=== PATIENT | male | born 1985 | race Caucasian/White ===

== ENCOUNTER 2018-10-09 17:27 | Emergency (ER) | payer BC, OTHER ==
[~2018-10-09] VITALS: Ht 185.4 cm; Wt 113.4 kg
[~2018-10-09 17:27] MED LIST: NAPR-915 PO; SULF1TAB35 PO; TRAM-42 PO; TRAM50TA2 PO
[2018-10-09 18:08] LABS: BACTERIA,URINE FEW /HPF; BILIRUBIN,URINE NEGATIVE (NEGATIVE); CLARITY,URINE CLOUDY; COLOR,URINE YELLOW; GLUCOSE, URINE (UA) NEGATIVE (NEGATIVE); KETONES,URINE NEGATIVE (NEGATIVE); LEUKOCYTE ESTERASE ,URINE 3+ (NEGATIVE); NITRITE,URINE NEGATIVE (NEGATIVE); PH,URINE 6.5 (5-9); PROTEIN,URINE NEGATIVE (NEGATIVE); RBC,URINE 0-2 /HPF; SQUAMOUS EPITHELIAL CELL,UR 0-2 /HPF; WBC,URINE >100 /HPF
[2018-10-09] MEDS ORDERED: DOXY100T2 PO (18:37)
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
[2018-10-09] MEDS ORDERED: cefTRIAXone 1,000 MG/2.86 ml vial (IM ONLY) ONE (18:42)
[2018-10-09] MEDS ORDERED: cefTRIAXone 250 MG/ML vial (IM ONLY) ONE (18:44)
[2018-10-09] MEDS ORDERED: LIDOCAINE 1% INJ 20 ML 20 ML VIAL INJ ONE (18:45)
[2018-10-09 18:58] VITALS: BP 124/65
--- NOTE | 2018-10-10 04:08 | ED GU-Female ---
General Chief Complaint: - Urinary Stated Complaint: PAINFUL URINATION Nursing Triage Note: Has had burning with urination and left flank pain since Friday. Was seen in urgent care Friday and treated with 3 day course of antibiotics. Symptoms have not improved and is now having R sided flank pain as well. Is having frequency, urgency. Denies fevers. Nursing Sepsis Screen: No Definite Risk Source: patient Exam Limitations: no limitations History of Present Illness Date Seen by Provider: October 09, 2018 Time Seen by Provider: 18:30 Initial Comments Patient is a 33-year-old male who presents with dysuria, frequency urgency and burning. Patient was treated by his PCP earlier this week for UTI and completed a brief course of Bactrim without improvement. No fever chills, nausea vomiting sweats. Does report light flank pain. No history of kidney stones. Patient has had STD exposure. Timing/Duration: constant Severity/Quality: moderate Location: right flank Radiation: none Activities at Onset: none Prior Genitourinary Problems: none Associated Symptoms: dysuria; No fever/chills, No nausea/vomiting Allergies and Home Medications Allergies Coded Allergies: No Known Drug Allergies (Unverified , 06/10/16) Home Medications Doxycycline Hyclate 100 Mg Tablet, 100 MG PO BID Prescribed by: AGATHA MARTINEZ on 10/09/18 7996 Patient Home Medication List Home Medication List Reviewed: Yes Review of Systems Review of Systems Constitutional: see HPI EENTM: see HPI Respiratory: see HPI Cardiovascular: see HPI Gastrointestinal: no symptoms reported Genitourinary: burning, dysuria, frequency, flank pain, urgency Musculoskeletal: no symptoms reported Skin: no symptoms reported Psychiatric/Neurological: No Symptoms Reported Endocrine: No Symptoms Reported Past Zfatcey-Nvmutc-Ednkil Hx Past Med/Social Hx: Reviewed Nursing Past Med/Soc Hx Patient Social History Alcohol Use: Occasionally Uses Recreational Drug Use: No Smoking Status: Current Everyday Smoker Type Used: Cigarettes 2nd Hand Smoke Exposure: No Recent Foreign Travel: No Contact w/Someone Who Travel: No Recent Infectious Disease Expo: No Recent Hopitalizations: No Physical Abuse: No Sexual Abuse: No Mistreated: No Fear: No Immunizations Up To Date Tetanus Booster (TDap): Unknown Seasonal Allergies Seasonal Allergies: No Past Medical History Surgeries: Yes (ear tubes) Respiratory: No Cardiac: No Neurological: No Genitourinary: No Gastrointestinal: No Musculoskeletal: Yes (pelvic fx; femur fx) Endocrine: No HEENT: No Cancer: No Psychosocial: No Integumentary: No Blood Disorders: No Family Medical History No Pertinent Family Hx Physical Exam Vital Signs Vital Signs - First Documented 10/09/18 17:58 Temp 100.0 Pulse 85 Resp 18 B/P (MAP) 149/76 (100) Pulse Ox 95 Capillary Refill : Less Than 3 Seconds Height, Weight, BMI Height: 6'1.00" Weight: 250lbs. oz. 113.687780af; BMI Method:Stated General Appearance: WD/WN, no apparent distress HEENT: PERRL/EOMI Neck: supple Cardiovascular: normal peripheral pulses Respiratory: chest non-tender Gastrointestinal: soft Focused Exam Sepsis Stage: Ruled Out Progress/Results/Core Measures Suspected Sepsis Recent Fever Within 48 Hours: Yes Infection Criteria Present: Suspected New Infection New/Unexplained Altered Menta: No Sepsis Screen: No Definite Risk SIRS Temperature:99.8 Pulse: 71 Respiratory Rate: 18 Blood Pressure 124 /65 Mean: 84 Results/Orders Lab Results Laboratory Tests Test 10/09/18 17:46 Range/Units Urine Color YELLOW Urine Clarity CLOUDY Urine pH 6.5 5-9 Urine Specific [place] 1.025 H 1.016-1.022 Urine Protein NEGATIVE NEGATIVE Urine Glucose (UA) NEGATIVE NEGATIVE Urine Ketones NEGATIVE NEGATIVE Urine Nitrite NEGATIVE NEGATIVE Urine Bilirubin NEGATIVE NEGATIVE Urine Urobilinogen 1.0 NORMAL MG/DL Urine Leukocyte Esterase 3+ H NEGATIVE Urine RBC (Auto) TRACE H NEGATIVE Urine RBC 0-2 /HPF Urine WBC >100 H /HPF Urine Squamous Epithelial Cells 0-2 /HPF Urine Crystals NONE /LPF Urine Bacteria FEW H /HPF Urine Casts NONE /LPF Urine Mucus NEGATIVE /LPF Urine Culture Indicated YES My Orders Orders - AGATHA MARTINEZ DO Ceftriaxone For Im Use (Rocephin For Im (10/10/18 09:00) Lidocaine 1% Inj 20 Ml (Xylocaine 1% Inj (10/09/18 18:45) Ceftriaxone For Im Use (Rocephin For Im (10/09/18 18:42) Ceftriaxone For Im Use (Rocephin For Im (10/09/18 18:44) Medications Given in ED Current Medications Medications Dose Ordered Sig/June Route Start Time Stop Time Status Last Admin Dose Admin Lidocaine HCl 0.9 ml ONCE ONCE INJ 10/09/18 18:45 10/09/18 18:46 DC 5/10/19 18:54 0.9 ML Vital Signs/I&O 10/09/18 10/09/18 17:58 18:58 Temp 100.0 99.8 Pulse 85 71 Resp 18 18 B/P (MAP) 149/76 (100) 124/65 (84) Pulse Ox 95 96 Capillary Refill : Less Than 3 Seconds Blood Pressure Mean: 84 Departure Communication (Admissions) Patient was STD risk factors. Rocephin given. Will prescribe doxycycline. PCP/ [facility] follow-up for distal STD screening. Impression Primary Impression: Urethritis Disposition: HOME, SELF-CARE Condition: Stable Departure-Patient Inst. Decision time for Depature: 19:00 Patient Instructions: Urethritis Add. Discharge Instructions: Please increase fluids and take antibiotics as directed. Follow up with health department or PCP for additional screening and urine culture results. All discharge instructions reviewed with patient and/or family. Voiced understanding. Scripts Doxycycline Hyclate (Doxycycline Hyclate) 100 Mg Tablet 100 MG PO BID, #20 TAB 0 Refills Prov: AGATHA MARTINEZ DO 10/09/18 AGATHA MARTINEZ DO October 10, 2018 04:07
[2018-10-10] MEDS ORDERED: cefTRIAXone 250 MG/ML vial (IM ONLY) IM SCH (09:00)
== END 2018-10-09 18:58 | disposition home or self-care (01) ==
LOC: EDUNIT# 17:27 → ER FS 17:29
DX: N34.2 Other urethritis (principal); Z87.440 Personal history of urinary (tract) infections; Z96.22 Myringotomy tube(s) status
CPT/HCPCS: 36415; 81000; 87088; 87186; 87491; 87591; 96372; 99284

== ENCOUNTER 2021-01-21 06:53 | Emergency (ER) | payer BC ==
[~2021-01-21] VITALS: Ht 185.5 cm; Wt 126.3 kg
[~2021-01-21 06:53] MED LIST changes: +DOXY100T2 PO; -SULF1TAB35 PO; +SULF1TAB38 PO; -TRAM50TA2 PO; +TRM50T PO
[2021-01-21 07:06] VITALS: BP 129/81
[2021-01-21] MEDS ORDERED: KETOROLAC 30 MG/ML VIAL IVP ONE (07:15)
[2021-01-21] MEDS ORDERED: NS IV 1000 ML 1,000 ML IV SCH (07:15)
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
[2021-01-21 07:17] LABS: COLOR,URINE DARK YELLOW
[2021-01-21 07:18] LABS: BILIRUBIN,URINE 1+ (NEGATIVE); CLARITY,URINE CLOUDY; GLUCOSE, URINE (UA) NEGATIVE (NEGATIVE); KETONES,URINE NEGATIVE (NEGATIVE); LEUKOCYTE ESTERASE ,URINE TRACE (NEGATIVE); NITRITE,URINE POSITIVE (NEGATIVE); PROTEIN,URINE 1+ (NEGATIVE); RBC,URINE TNTC /HPF
[2021-01-21 07:30] LABS: HEMOGLOBIN 15.8 g/dL (13.3-17.7); MEAN CORPUSCULAR HEMOGLOBIN 29 pg (25-34); WHITE BLOOD COUNT 9.7 10^3/uL (4.3-11.0)
[2021-01-21] MEDS ORDERED: ONDANSETRON 4 MG/2 ML (SDV) Z0FRAN IVP ONE (07:30)
[2021-01-21 07:31] LABS: BASOPHILS # (AUTO) 0.1 10^3/uL (0.0-0.1); BASOPHILS % (AUTO) 1 % (0-10); EOSINOPHILS # (AUTO) 0.5 10^3/uL (0.0-0.3); EOSINOPHILS % (AUTO) 6 % (0-10); HEMATOCRIT 46 % (40-54); LYMPHOCYTES # (AUTO) 2.3 X 10^3 (1.0-4.0); LYMPHOCYTES % (AUTO) 24 % (12-44); MEAN CORPUSCULAR HGB CONC 34 g/dL (32-36); MEAN CORPUSCULAR VOLUME 86 fL (80-99); MEAN PLATELET VOLUME 11.7 fL (9.0-12.2); MONOCYTES # (AUTO) 1.1 X 10^3 (0.0-1.0); MONOCYTES % (AUTO) 11 % (0-12); NEUTROPHILS # (AUTO) 5.7 X 10^3 (1.8-7.8); NEUTROPHILS % (AUTO) 59 % (42-75); PLATELET COUNT 328 10^3/uL (130-400)
[2021-01-21] MEDS ORDERED: fentaNYL INJ 100 MCG/2 ML AMP ONE (07:41)
[2021-01-21] MEDS ORDERED: fentaNYL INJ 100 MCG/2 ML AMP IVP ONE (07:45)
--- NOTE | 2021-01-21 07:49 | Diagnostic Imaging Report ---
PROCEDURE: CT abdomen and pelvis without contrast. TECHNIQUE: Multiple contiguous axial images were obtained through the abdomen and pelvis without the use of intravenous contrast. Auto Exposure Controls were utilized during the CT exam to meet ALARA standards for radiation dose reduction. INDICATION: Sudden onset left lower quadrant abdominal pain. COMPARISON: None. FINDINGS: Lung bases are clear. The liver, gallbladder, pancreas, spleen, adrenals, right kidney, right ureter, bladder and appendix are negative on this noncontrast exam. 0.4 cm renal stone in the left ureteropelvic junction results in mild left hydronephrosis. No free intraperitoneal air or fluid. No lymphadenopathy. No evidence of bowel obstruction. No acute osseous findings. Chronic pubic ramus fractures. IMPRESSION: 0.4 cm renal stone in the left ureteropelvic junction resulting in mild left hydronephrosis. Dictated by: Dictated on workstation # [id number]
[2021-01-21 07:50] LABS: ALBUMIN 4.1 GM/DL (3.2-4.5); BILIRUBIN,TOTAL 0.5 MG/DL (0.1-1.0); CREATININE SERUM 0.98 MG/DL (0.60-1.30); POTASSIUM 4.2 MMOL/L (3.6-5.0); TOTAL PROTEIN 6.9 GM/DL (6.4-8.2)
[2021-01-21] MEDS ORDERED: TMSL.4C PO (08:03)
[2021-01-21] MEDS ORDERED: IBUP-1780 PO (08:03)
[2021-01-21] MEDS ORDERED: ACHD5005 PO (08:03)
== END 2021-01-21 08:10 | disposition home or self-care (01) ==
LOC: EDUNIT# 06:53 → ER FS 06:56
DX: N13.2 Hydronephrosis with renal and ureteral calculous obstruction (principal); F17.210 Nicotine dependence, cigarettes, uncomplicated
CPT/HCPCS: 36415; 74176; 80053; 81000; 85025; 87088

== ENCOUNTER 2021-01-22 14:22 | Outpatient (CLI) | payer BC ==
[~2021-01-22] VITALS: Ht 185.5 cm; Wt 126.3 kg
[~2021-01-22 14:22] MED LIST changes: -KETO10TA PO; -NITR-65 PO
[2021-01-23] MEDS ORDERED: NITR-65 PO (12:30)
[2021-01-23] MEDS ORDERED: TMSL.4C PO (12:30)
[2021-01-23] MEDS ORDERED: KETO10TA PO (12:30)
== END 2021-01-22 15:26 | disposition home or self-care (01) ==
LOC: PREOP 14:22
PROVIDERS: ATTEND Urology
DX: Z01.818 Encounter for other preprocedural examination (principal)

== ENCOUNTER → 2021-01-22 | Outpatient (CLI) | payer BC ==
[~2021-01-22] MED LIST changes: +ACHD5005 PO; +IBUP-1780 PO; +KETO10TA PO; +NITR-65 PO; +TMSL.4C PO
--- NOTE | 2021-01-22 13:55 | Diagnostic Imaging Report ---
INDICATION: Left-sided flank pain. COMPARISON: 01/21/2021 FINDINGS: Two supine radiographic views of the abdomen were obtained and demonstrate 3 mm extraosseous calcification projecting over the left psoas muscle at approximately the level of the L3 transverse process. Findings are felt to correspond to proximal ureteral calculus seen on CT abdomen from one day prior. There does appear to be some interval distal migration. No unexpected radiopaque foreign bodies are seen. Small bowel loops are nondistended. There is no large collection of free intraperitoneal air. Osseous structures show no gross acute abnormalities. IMPRESSION: 1. Findings consistent with slight interval distal migration of previously described left ureteral calculus. Dictated by: Dictated on workstation # [id number]
== END ==
LOC: RAD 12:44
PROVIDERS: ATTEND Urology
DX: N20.2 Calculus of kidney with calculus of ureter (principal)
CPT/HCPCS: 74018

== ENCOUNTER 2021-01-23 07:14 | Day surgery (SDC) | payer BC ==
[2021-01-23] VITALS (9 sets, daily range): BP systolic 106–141; BP diastolic 58–97
[~2021-01-23] VITALS: Ht 185 cm; Wt 126.3 kg
[2021-01-23] MEDS ORDERED: cefTRIAXone 1,000 MG in WATER (STERILE) FOR INJECTION 10 ML IV ONE (07:30)
[2021-01-23] MEDS ORDERED: LACTATED RINGERS 1,000 ML IV PRN (08:00)
--- NOTE | 2021-01-23 08:03 | Progress Note-Pre Operative ---
Pre-Operative Progress Note H&P Reviewed The H&P was reviewed, patient examined and no changes noted. Date Seen by Provider: Jan 23, 2021 Time Seen by Provider: 08:02 Date H&P Reviewed: Jan 23, 2021 Time H&P Reviewed: 08:02 Pre-Operative Diagnosis: LT PROXIMAL URETERAL STONE EVAN BEAN MD Jan 23, 2021 08:03
--- NOTE | 2021-01-23 08:05 | Progress Note-Post Operative ---
Post-Operative Progess Note Surgeon (s)/Fish Hatchery Superintendent (s) Surgeon EVAN BEAN MD Fish Hatchery Superintendent: NONE Pre-Operative Diagnosis LT PROXIMAL URETERAL STONE Post-Operative Diagnosis SAME Procedure & Operative Findings Date of Procedure 01/23/21 Procedure Performed/Findings LT ESWL Anesthesia Type GENERAL Estimated Blood Loss Estimated blood loss (mL): NONE Specimens/Packing Specimens Removed NONE Packing: NONE EVAN BEAN MD Jan 23, 2021 08:05
--- NOTE | 2021-01-23 08:07 | Discharge Inst-Urology ---
Discharge Inst-Urology Reconcile Patient Problems Problems Reviewed?: Yes Final Diagnosis RT RENAL STONE Patient Instructions/Follow Up Plan/Assessment/Instructions Please make appointment to been seen in office in 2 weeks. KUB prior to it KUB on way home Post ESWL instructions Increase oral fluids for 48 hours and then as needed. Diet and Activity as tolerated. If questions or concerns contact your physician Or seek help at emergency department. EVAN BEAN MD Jan 23, 2021 08:07
--- NOTE | 2021-01-23 08:41 | Diagnostic Imaging Report ---
INDICATION: Kidney stones COMPARISON: 01/22/2021 FINDINGS: 2 views abdomen demonstrate stable 3 mm stone probably in the inferior pole left kidney. No obvious ureteral calculi are seen. Osseous structures are stable. The bowel gas pattern is unremarkable. IMPRESSION: Stable stone inferior pole left kidney. Dictated by: Dictated on workstation # [id number]
[2021-01-23] MEDS ORDERED: SEVOFLURANE (ULTANE) 15 ML INHAL SOLN ONE (10:39)
[2021-01-23] MEDS ORDERED: proPOfol 200 MG/20 ML (DIPRIVAN) VIAL IV ONE ×2 (10:39→10:53)
[2021-01-23] MEDS ORDERED: MIDAZOLAM 2 MG/2 ML (VERSED) VIAL ONE (10:39)
[2021-01-23] MEDS ORDERED: fentaNYL INJ 100 MCG/2 ML AMP ONE (10:39)
[2021-01-23] MEDS ORDERED: LIDOCAINE PF 2% 5 ML (XYLOCAINE) VIAL ONE (10:39)
[2021-01-23] MEDS ORDERED: ONDANSETRON 4 MG/2 ML (SDV) Z0FRAN ONE (10:39)
[2021-01-23] MEDS ORDERED: FUROSEMIDE 40 MG/4 ML INJ (LASIX) ONE (10:44)
[2021-01-23] MEDS ORDERED: KETOROLAC 30 MG/ML VIAL ONE (10:44)
[2021-01-23] MEDS ORDERED: ONDANSETRON 4 MG/2 ML (SDV) Z0FRAN IVP PRN (11:30)
[2021-01-23] MEDS ORDERED: KETO10TA PO (12:30)
[2021-01-23] MEDS ORDERED: TMSL.4C PO (12:30)
[2021-01-23] MEDS ORDERED: NITR-65 PO (12:30)
--- NOTE | 2021-01-23 13:08 | Diagnostic Imaging Report ---
Indication: Postop kidney stones. Comparison: 01/23/2021 at 7:47 a.m. Findings: 2 views of the abdomen demonstrate nondistended bowel gas pattern. There is no unexpected foreign body. The calcification on the left is no longer seen. Impression: Left-sided calcification no longer identified. Dictated by: Dictated on workstation # [id number]
--- NOTE | 2021-01-23 14:00 | Anesthesia-General Post-Op ---
General Patient Condition Mental Status/LOC: Same as Preop Cardiovascular: Satisfactory Nausea/Vomiting: Absent Respiratory: Satisfactory Pain: Controlled Complications: Absent Post Op Complications Complications None Follow Up Care/Instructions Patient Instructions None needed. Anesthesia/Patient Condition Patient Condition Patient is doing well, no complaints, stable vital signs, no apparent adverse anesthesia problems. No complications reported per nursing. [place] [facility] [place]: Yes LLUVIA BUTTS CRNA Jan 23, 2021 14:00
--- NOTE | 2021-01-23 14:26 | OPERATIVE REPORT ---
DATE OF SERVICE: 01/23/2021 PREOPERATIVE DIAGNOSIS: Left proximal ureteral stone. POSTOPERATIVE DIAGNOSIS: Left proximal ureteral stone. OPERATION PERFORMED: Left ESWL. SURGEON: Garo Bean MD ANESTHESIA: General. COMPLICATIONS: None. DESCRIPTION OF PROCEDURE: Under satisfactory general anesthesia, the patient in supine position on the ESWL table, the left proximal ureteral stone was localized, and shocks were delivered at kV of 6. Total of 2000 shocks completely fragmented the stone that was hardly visible. The patient received 40 mg of Lasix and 30 mg of Toradol IV at the end of the procedure. He tolerated the procedure and anesthesia well and was sent to recovery room in stable condition. Job ID: [id number] DocumentID: [id number] Dictated Date: 01/23/2021 11:13:12 Tool Designer Apprentice Date: 01/23/2021 14:25:45 Dictated By: GARO BEAN MD
== END 2021-01-23 13:15 ==
LOC: SDC 07:14
PROVIDERS: ATTEND Urology
DX: N20.1 Calculus of ureter (principal)
CPT/HCPCS: 74018; 87081

== ENCOUNTER 2021-02-06 16:41 | Outpatient (RCR) | payer BC ==
[~2021-02-06 16:41] MED LIST changes: +KETO10TA PO; +NITR-65 PO
--- NOTE | 2021-02-06 18:31 | Diagnostic Imaging Report ---
INDICATION: Follow-up kidney stone. TIME OF EXAM: 5:09 PM Comparison is made with prior radiograph from 01/23/2021. No definite radiopaque urinary tract calculi are seen. Bowel gas pattern is unremarkable. IMPRESSION: No radiopaque urinary tract calculi are detected. Dictated by: Dictated on workstation # [id number]
== END 2021-05-07 | disposition home or self-care (01) ==
LOC: RAD 16:41 → EDSTATUS 16:41
PROVIDERS: ATTEND Urology
DX: N20.0 Calculus of kidney (principal)
CPT/HCPCS: 74018; 88300

== ENCOUNTER → 2021-02-13 | Outpatient (CLI) | payer BC | LOC: LAB FS 07:57 | PROVIDERS: ATTEND Urology | DX: N20.0 Calculus of kidney (principal) | CPT/HCPCS: 36415; 82140; 82340; 82507; 82570; 83735; 83945; 83986; 84105; 84133; 84300; 84392; 84560 ==